=== PATIENT | male | born 1995 | race Hispanic/Latino ===

== ENCOUNTER 2019-01-18 08:52 | Emergency (ER) | payer SELFPAY ==
[2019-01-18] MEDS ORDERED: DELTASONE PO STA (09:52)
[2019-01-18] MEDS ORDERED: NORCO 5/325 PO STA (09:52)
--- NOTE | 2019-01-18 09:55 | Emergency Department Report ---
ED General Adult HPI - General Chief complaint: Back Pain/Injury Stated complaint: BACK/NECK PAIN/NUMBNESS IN LIMB Time Seen by Provider: 01/18/19 09:50 Source: patient Mode of arrival: Ambulatory Limitations: No Limitations - History of Present Illness Initial comments: 23-year-old male presents with department complaining of a 2-3 year history of waxing and waning progressively worsening back pain to the mid thoracic and lower back region, now associated with occasional numbness and tingling to the arms and legs, but no loss of strength. Reports no saddle paresthesia. No urinary incontinence, no urinary retention. Reports no recent trauma. 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 He cannot recall a specific injury or incident that precipitated this injury but does have some mild school or scoliosis. Over the counter medications, has not been helpful. He has not yet followed up with a specialist as recommended in the past due to his insurance situation. Quality: aching, dull Consistency: constant Worsens with: movement Associated Symptoms: denies other symptoms Treatments Prior to Arrival: none - Related Data Previous Rx's Medication Instructions Recorded Last Taken Type Ketorolac [Toradol] 10 mg PO Q6H PRN #15 tablet 01/18/19 Unknown Rx methOCARBAMOL [Robaxin] 750 mg PO Q8H PRN #21 tablet 01/18/19 Unknown Rx Allergies Allergy/AdvReac Type Severity Reaction Status Date / Time No Known Allergies Allergy Unverified 01/18/19 09:07 ED Review of Systems ROS: Stated complaint: BACK/NECK PAIN/NUMBNESS IN LIMB Other details as noted in HPI Comment: All other systems reviewed and negative ED Past Medical Hx - Social History Smoking Status: Current Every Day Smoker Substance Use Type: None - Medications Home Medications: Home Medications Medication Instructions Recorded Confirmed Last Taken Type Ketorolac [Toradol] 10 mg PO Q6H PRN #15 tablet 01/18/19 Unknown Rx methOCARBAMOL [Robaxin] 750 mg PO Q8H PRN #21 tablet 01/18/19 Unknown Rx ED Physical Exam - General Limitations: No Limitations General appearance: alert, in no apparent distress - Head Head exam: Present: atraumatic, normocephalic - Eye Eye exam: Present: normal appearance - ENT ENT exam: Present: mucous membranes moist - Neck Neck exam: Present: normal inspection, full ROM. Absent: meningismus, lymphadenopathy, thyromegaly - Respiratory Respiratory exam: Present: normal lung sounds bilaterally. Absent: respiratory distress - Cardiovascular Cardiovascular Exam: Present: regular rate, normal rhythm. Absent: systolic murmur, diastolic murmur, rubs, gallop - GI/Abdominal GI/Abdominal exam: Present: soft, normal bowel sounds - Rectal Rectal exam: Present: deferred - Extremities Exam Extremities exam: Present: normal inspection - Back Exam Back exam: Present: normal inspection, tenderness, paraspinal tenderness, vertebral tenderness. Absent: CVA tenderness (R), CVA tenderness (L), muscle spasm - Neurological Exam Neurological exam: Present: alert, oriented X3, CN II-XII intact, normal gait - Psychiatric Psychiatric exam: Present: normal affect, normal mood - Skin Skin exam: Present: warm, dry, intact, normal color. Absent: rash ED Course Vital Signs 01/18/19 09:05 Temperature 97.5 F L Pulse Rate 77 Respiratory 20 Rate Blood Pressure 151/90 O2 Sat by Pulse 96 Oximetry Critical care attestation.: If time is entered above; I have spent that time in minutes in the direct care of this critically ill patient, excluding procedure time. ED Disposition Clinical Impression: Lumbago Disposition: DC-01 TO HOME OR SELFCARE Is pt being admited?: No Does the pt Need Aspirin: No Condition: Stable Instructions: Low Back Strain (ED), Lumbar Radiculopathy (ED), Chronic Back Pain (ED) Additional Instructions: 23-year-old male been treated for chronic back pain or lumbar ago plan is to treat according with the medications and have follow-up in 1-2 weeks with orthopedic for further evaluation and treatment options. And neurologically intact. No osseous trauma noted. He may want to entertain a chiropractor and lumbar physical therapy Prescriptions: methOCARBAMOL [Robaxin] 750 mg PO Q8H PRN #21 tablet PRN Reason: Spasms Ketorolac [Toradol] 10 mg PO Q6H PRN #15 tablet PRN Reason: Pain Referrals: SANDEEP JERRY MD [Staff Physician] - 3-5 Days [facility] HARRY BUNDY MD [Primary Care Provider] - 3-5 Days
--- NOTE | 2019-01-18 10:25 | XRay Report ---
LUMBAR SPINE 3 VIEWS INDICATION / CLINICAL INFORMATION: lower back pain. COMPARISON: None available. FINDINGS: VERTEBRAE: No acute fracture. No significant malalignment. 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 DISC SPACES / FACET JOINTS:No significant abnormality. PARASPINAL SOFT TISSUES:No significant abnormality. ADDITIONAL FINDINGS: None. Signer Name: Helena Loyd MD Signed: 01/18/2019 10:21 AM Workstation Name: [id number]
--- NOTE | 2019-01-18 10:26 | XRay Report ---
THORACIC SPINE 3 VIEWS INDICATION / CLINICAL INFORMATION: Back pain getting worse over the years. COMPARISON: None available. FINDINGS: VERTEBRAE: No acute fracture. No significant malalignment. DISC SPACES / FACET JOINTS:No significant abnormality. PARASPINAL SOFT TISSUES:No significant abnormality. ADDITIONAL FINDINGS: None. Signer Name: Helena Loyd MD Signed: 01/18/2019 10:22 AM Workstation Name: [id number]
[2019-01-18 11:44] VITALS: BP 122/87
== END 2019-01-18 11:44 | disposition home or self-care (01) ==
LOC: ED 08:52
DX: M54.5 Low back pain (principal); F17.200 Nicotine dependence, unspecified, uncomplicated
CPT/HCPCS: 72072; 72100; 99283; J7512